=== PATIENT | female | born 1975 | race Caucasian/White ===

== ENCOUNTER 2017-11-19 11:17 | Outpatient (RCR) | payer OTHER, SELFPAY ==
--- NOTE | 2017-11-20 06:41 | PT.OTN ---
Current Diagnoses Other female genital prolapse (11/19/17) Other symptoms and signs involving the musculoskeletal system (11/19/17) Physical Therapy Treatment Note PT-OP-A Visit Information Start: 11/20/17 06:26 Freq: Status: Active Protocol: Document 11/19/17 11:15 [facility] (Rec: 11/20/17 06:41 [facility] [email or web address]) Out-Patient Physical Therapy Visit Information Visit Information Visit Type Treatment Note Visit Start Time 11:15 Visit Stop Time 12:00 Total Visit Minutes 45 Visit Number 7 Number of COIL INSPECTOR Visits 0 PT-OP-C Subjective Start: 11/20/17 06:26 Freq: Status: Active Protocol: Document 11/19/17 11:15 [facility] (Rec: 11/20/17 06:41 [facility] [email or web address]) OP-PT Subjective Patient Comments Patient Comments Overall Johanne reports she is doing better with her pelvic floor and she is not feeling the pelvic pressure like she was. She ntoes she is not leaking at this time. She continues to note abdominal discomfort and will be seeking further care from a specialist on the colon. Patient Reported Progress Improving PT-OP-Q Treatments Start: 11/20/17 06:26 Freq: Status: Active Protocol: Document 11/19/17 11:15 [facility] (Rec: 11/20/17 06:41 [facility] [email or web address]) Therapeutic Exercises Supine Exercises 2 Supine Exercise Name stretches for the pelvic floor , hips and low back Side bilateral Comments review of home exercise program 1 Supine Exercise Name pelvic floor and abdominal stabilization exercises Side bilateral Comments for core stability Sitting Exercises 1 Sitting Exercise Name seated sidebends Side bilateral Other Exercises 1 Other Exercise Name quadraped stabilization with abdominal bracing Side bilateral PT-OP-T Assessment and Plan Start: 11/20/17 06:26 Freq: Status: Active Protocol: Document 11/19/17 11:15 [facility] (Rec: 11/20/17 06:41 [facility] [email or web address]) Physical Therapy Assessment Assessment Summary Assessment Johanne returned to PT today after working on her own for 1 month on her exercises. She has noted overall improvements with decreased pelvic floor pressure and is not noticing the prolapse as much. She does still complain of abdominal discomfort that she feels may be coming from her colon. Today we reviewed her home exercise program including stretches and stabilization. Johanne has a good handle on her program. She will be discharged at this time. Physical Therapy Plan Frequency and Duration Plan of Care End Date 11/19/17 Discharge Physical Therapy Discharge Reasons Patient Request Discharge Comments overall goal have been met with the exception of the abdominal wall tenderness Next Visit Focus/Plan Next Note Type Discharge Summary Next Visit Plan DC PT as of today Please Sign and Return: I have reviewed this Plan of Care and certify that the skilled therapy services above are required to meet the patient???s needs. Physician Signature Date Printed Name and Credentials Clinical Instructor Signature Printed Name and Credentials
== END 2018-02-26 11:51 ==
LOC: PHYS 11:17
PROVIDERS: Family Provider Obstetrics & Gynecology; PCP Obstetrics & Gynecology; Visit Provider Obstetrics & Gynecology
DX: N81.89 Other female genital prolapse (principal); R29.898 Other symptoms and signs involving the musculoskeletal system
CPT/HCPCS: 97110; 97535